=== PATIENT | female | born 1945 | race Caucasian/White ===

== ENCOUNTER 2016-05-27 15:00 | Outpatient (RCR) | payer MEDICARE, OTHER | END 2016-05-30 09:31 | disposition home or self-care (01) | LOC: WSOT 15:00 | DX: M25.521 Pain in right elbow (principal) | CPT/HCPCS: G8987-GO; G8988-GO; G8989-GO ==

== ENCOUNTER 2016-10-10 09:00 | Outpatient (RCR) | payer MEDICARE, OTHER | END 2016-11-15 09:00 | LOC: WSOT 09:00 | DX: M25.521 Pain in right elbow (principal); Z98.890 Other specified postprocedural states | CPT/HCPCS: G8987-GO; G8988-GO ==

== ENCOUNTER 2017-03-31 10:00 | Outpatient (RCR) | payer MEDICARE, OTHER | END 2017-03-31 17:26 | disposition home or self-care (01) | LOC: WSOT 10:00 | DX: M77.01 Medial epicondylitis, right elbow (principal) | CPT/HCPCS: G8987-GO; G8988-GO; G8989-GO ==